=== PATIENT | male | born 1970 | race Caucasian/White ===

== ENCOUNTER 2020-08-18 20:35 | Observation (INO) ==
--- NOTE | 2020-08-18 21:20 | Emergency Department Note ---
History of Present Illness General Chief complaint: Hypertension Stated complaint: HIGH BLOOD PRESSURE Time Seen by Provider: 08/18/20 21:06 History of Present Illness Maximum Pain Intensity: 3 This is a 49-year-old male that presents to the emergency department via private vehicle with complaints "high blood pressure". The patient notes that he has not seen a PCP since 1994. Yesterday he presented to an urgent care for evaluation of some swelling to his face and was noted to have elevated blood pressure therefore sent here for evaluation. Patient underwent complete work-up in the ED yesterday and notes that he was discharged home with amlodipine. He took the first dose earlier today around 10:30 AM. This was a 5 mg dose. Patient states that he then checked his blood pressure at home and it was 222/116. This was around 7 PM and around that same time he developed chest pain on the left side described as a pressure that lasted about 30 minutes. This is the first time he has experienced chest pressure with this. The patient denies any headache. He denies any other pertinent past medical history, surgeries or allergies that he is aware of. Home Medications Medication Instructions Recorded Confirmed Type acetaminophen [Tylenol] 650 mg PO QID PRN 08/17/20 08/18/20 History amlodipine [Norvasc] 5 mg PO DAILY #20 tab 08/17/20 08/18/20 Rx Allergies Allergy/AdvReac Type Severity Reaction Status Date / Time No Known Allergies Allergy Unverified 08/17/20 10:57 Past Med/Surg History Medical History (Updated 08/19/20 @ 01:11 by Willy Rolle PA-C) Borderline diabetes Surgical History No pertinent past surgical history Social History Smoking Status: Never smoker Preferred Language: Maltese Feels Safe at Home: Yes Review of Systems A total of 10 systems reviewed and were otherwise negative Physical Exam Vital Signs Vital Signs - 24 hr 08/18/20 20:36 08/18/20 21:00 08/18/20 21:09 Temperature 36.5 C Temperature Source Temporal Artery Scan Pulse Rate 106 H 84 88 Pulse Rate [Bilateral Apical] Pulse Rate from SpO2 Sensor 84 88 Respiratory Rate 18 25 H 18 Respiratory Effort / Characteristics Respiratory Depth Blood Pressure 235/138 H 194/103 H Blood Pressure [Left Arm] Blood Pressure Mean 170 133 Blood Pressure Mean [Left Arm] Pulse Oximetry 97 96 97 Oxygen Delivery Method Room Air Sepsis Recent Fever Within 48 Hours No Sepsis New/Unexplained Change in Mental Status N/A Sepsis Action Taken by Nursing No Action Required 08/18/20 21:30 08/18/20 21:31 08/18/20 22:00 Temperature Temperature Source Pulse Rate 87 75 Pulse Rate [Bilateral Apical] Pulse Rate from SpO2 Sensor 92 H 87 76 Respiratory Rate Respiratory Effort / Characteristics Respiratory Depth Blood Pressure 212/114 H 189/110 H Blood Pressure [Left Arm] Blood Pressure Mean 146 136 Blood Pressure Mean [Left Arm] Pulse Oximetry 97 97 97 Oxygen Delivery Method Sepsis Recent Fever Within 48 Hours Sepsis New/Unexplained Change in Mental Status Sepsis Action Taken by Nursing 08/18/20 22:01 08/18/20 22:30 08/18/20 22:31 Temperature Temperature Source Pulse Rate 75 75 82 Pulse Rate [Bilateral Apical] Pulse Rate from SpO2 Sensor 75 76 82 Respiratory Rate Respiratory Effort / Characteristics Respiratory Depth Blood Pressure 197/107 H Blood Pressure [Left Arm] Blood Pressure Mean 137 Blood Pressure Mean [Left Arm] Pulse Oximetry 95 97 96 Oxygen Delivery Method Sepsis Recent Fever Within 48 Hours Sepsis New/Unexplained Change in Mental Status Sepsis Action Taken by Nursing 08/18/20 23:11 08/18/20 23:52 08/19/20 00:41 Temperature Temperature Source Pulse Rate Pulse Rate [Bilateral Apical] 76 70 78 Pulse Rate from SpO2 Sensor Respiratory Rate 20 20 20 Respiratory Effort / Characteristics Non-Labored Respiratory Depth Normal Blood Pressure Blood Pressure [Left Arm] 197/108 H 195/108 H 180/99 H Blood Pressure Mean Blood Pressure Mean [Left Arm] 137 137 126 Pulse Oximetry 99 96 98 Oxygen Delivery Method Room Air Room Air Room Air Sepsis Recent Fever Within 48 Hours Sepsis New/Unexplained Change in Mental Status Sepsis Action Taken by Nursing VITAL SIGNS - Vital signs and nursing notes were reviewed. Hypertensive, otherwise stable and afebrile. GENERAL -4-year-old male appearing his stated age who is in no acute distress. Communicates well with provider and answers questions appropriately. SKIN - Without rashes. No meningeal or petechial rash. HEAD - NC/AT. EYES - PERRL with EOMI bilaterally. Sclera anicteric. EARS - No deformities of external structures noted on gross examination bilaterally. NOSE - Midline and without cyanosis. No epistaxis or purulent drainage noted. MOUTH/OROPHARYNX - Without perioral cyanosis. NECK - Neck with FROM. No nuchal rigidity. LUNGS - Chest wall symmetric without accessory muscle use, intercostals retractions, or central cyanosis. Normal vesicular breath sounds CTA B/L. No wheezes, rales, or rhonchi appreciated. CARDIAC - RRR with S1/S2. No murmur, rubs, or gallops appreciated. ABDOMEN - Abdominal contour normal without pulsations or visible masses. BS normoactive all four quadrants. No tenderness, palpable masses, hepatosplenomegaly, or ascites noted. EXTREMITIES - No clubbing or peripheral cyanosis. NEUROLOGIC - Cranial nerves II through XII grossly intact. PSYCH - A&Ox3 and cooperates fully with examiner. Pt is very pleasant and interacts well with examiner. Medical Decision Making Laboratory Data Result diagrams: 08/18/20 21:38 08/18/20 21:38 Lab Results 08/18/20 08/18/20 08/18/20 Range/Units 21:38 21:38 23:20 WBC 8.98 (4.8-10.8) K/uL RBC 5.12 (4.7-6.1) M/uL Hgb 15.0 (14.0-18.0) g/dL Hct 45.0 (42-52) % MCV 87.9 (80-100) fL MCH 29.3 (25-34) pg MCHC 33.3 (32-36) g/dL RDW Std Deviation 44.2 (36.4-46.3) fL RDW Coeff of Aman 13.7 (11.5-14.5) % Plt Count 208 (130-400) K/uL MPV 11.8 H (7.4-10.4) fL Immature Gran % (Auto) 0.1 % Neut % (Auto) 63.0 % Lymph % (Auto) 23.6 % [place] % (Auto) 9.4 % Eos % (Auto) 3.6 % Baso % (Auto) 0.3 % Neut # (Auto) 5.66 (1.4-6.5) K/uL Lymph # (Auto) 2.12 (1.2-3.4) K/uL [place] # (Auto) 0.84 H (0.11-0.59) K/uL Eos # (Auto) 0.32 (0-0.5) K/uL Baso # (Auto) 0.03 (0-0.2) K/uL Immature Gran # (Auto) 0.01 (0.00-0.02) K/uL Sodium 142 (136-145) mmol/L Potassium 3.5 (3.5-5.1) mmol/L Chloride 108 H (98-107) mmol/L Carbon Dioxide 25 (21-32) mmol/L Anion Gap 9.0 (3-11) BUN 17 (7-18) mg/dl Creatinine 1.12 (0.6-1.4) mg/dl Est Cr Clr Drug Dosing 99.4 ml/min Est GFR ( Amer) 88.3 ml/min Est GFR (Non-Af Amer) 76.2 ml/min BUN/Creatinine Ratio 14.8 (10-20) Glucose 110 H (70-99) mg/dl Calcium 9.3 (8.5-10.1) mg/dl Total Bilirubin 0.3 (0.2-1) mg/dl AST 18 (15-37) U/L ALT 24 (12-78) U/L Alkaline Phosphatase 121 H (45-117) U/L Troponin I 0.035 0.037 (0-0.045) ng/ml NT-Pro-B Natriuret Pep 458 (0-900) pg/ml Total Protein 7.5 (6.4-8.2) gm/dl Albumin 3.6 (3.4-5.0) gm/dl Globulin 3.9 (2.5-4.0) gm/dl Albumin/Globulin Ratio 0.9 (0.9-2) Urine Color Urine Appearance (Clear) Urine pH (4.5-7.5) Ur Specific [place] (1.000-1.030) Urine Protein (Negative) Urine Glucose (UA) (Negative) Urine Ketones (Negative) Urine Blood (Negative) Urine Nitrite (Negative) Urine Bilirubin (Negative) Urine Urobilinogen (Negative) Ur Leukocyte Esterase (Negative) COVID-19 Eval Order 08/18/20 08/19/20 Range/Units 23:45 00:20 WBC (4.8-10.8) K/uL RBC (4.7-6.1) M/uL Hgb (14.0-18.0) g/dL Hct (42-52) % MCV (80-100) fL MCH (25-34) pg MCHC (32-36) g/dL RDW Std Deviation (36.4-46.3) fL RDW Coeff of Aman (11.5-14.5) % Plt Count (130-400) K/uL MPV (7.4-10.4) fL Immature Gran % (Auto) % Neut % (Auto) % Lymph % (Auto) % [place] % (Auto) % Eos % (Auto) % Baso % (Auto) % Neut # (Auto) (1.4-6.5) K/uL Lymph # (Auto) (1.2-3.4) K/uL [place] # (Auto) (0.11-0.59) K/uL Eos # (Auto) (0-0.5) K/uL Baso # (Auto) (0-0.2) K/uL Immature Gran # (Auto) (0.00-0.02) K/uL Sodium (136-145) mmol/L Potassium (3.5-5.1) mmol/L Chloride (98-107) mmol/L Carbon Dioxide (21-32) mmol/L Anion Gap (3-11) BUN (7-18) mg/dl Creatinine (0.6-1.4) mg/dl Est Cr Clr Drug Dosing ml/min Est GFR ( Amer) ml/min Est GFR (Non-Af Amer) ml/min BUN/Creatinine Ratio (10-20) Glucose (70-99) mg/dl Calcium (8.5-10.1) mg/dl Total Bilirubin (0.2-1) mg/dl AST (15-37) U/L ALT (12-78) U/L Alkaline Phosphatase (45-117) U/L Troponin I (0-0.045) ng/ml NT-Pro-B Natriuret Pep (0-900) pg/ml Total Protein (6.4-8.2) gm/dl Albumin (3.4-5.0) gm/dl Globulin (2.5-4.0) gm/dl Albumin/Globulin Ratio (0.9-2) Urine Color Yellow Urine Appearance Clear (Clear) Urine pH 7.0 (4.5-7.5) Ur Specific [place] 1.019 (1.000-1.030) Urine Protein Negative (Negative) Urine Glucose (UA) Negative (Negative) Urine Ketones Negative (Negative) Urine Blood Negative (Negative) Urine Nitrite Negative (Negative) Urine Bilirubin Negative (Negative) Urine Urobilinogen Negative (Negative) Ur Leukocyte Esterase Negative (Negative) COVID-19 Eval Order Covid19 at [facility] Imaging Data My Impression: Per my interpretation, chest x-ray compared to previous reveals no significant change or acute process. MDM Narrative Patient was seen and evaluated as above in room A12. Review was performed of nursing notes and vital signs. I did review pertinent previous visits and patient history. After obtaining a thorough history and physical examination the above work up was performed. Patient presents to us today following an elevated blood pressure reading at home. Patient has not seen a PCP since 1994. He then presented to [facility]/urgent care yesterday for evaluation of some facial swelling and was found to be significantly hypertensive and sent here for eval. Patient had a complete work-up performed and was started on amlodipine. He then notes that today he checked his blood pressure around 7 PM and it was elevated at 222/116. He was concerned therefore prompted arrival. Around that same time he developed left-sided chest pressure that lasted about 30 minutes. I will note that without intervention here the patient's systolic blood pressure did drop about 17%. Labs reveal no leukocytosis or concerning anemia. No emergent metabolic disturbance. Troponin although detectable is within normal range x2. Urinalysis does not just infection. Chest x-ray reveals no acute process compared to previous. Given the patient's left-sided chest discomfort that occurred earlier today which is new in the setting of significant hypertension do believe that further evaluation and management inpatient setting is warranted. Case discussed with the hospitalist. Please refer to further documentation regarding his stay. At the time of discussion with the hospitalist we agreed upon adding IV labetalol x1 however upon reassessment the patient's systolic had been dropped to 180 and therefore held. EKG reveals normal sinus rhythm at a rate of [address] elevation. This was with a QTC of 456 and a QRS at 98. This was compared EKG performed yesterday and no significant change was found. An order was placed for continuous cardiac monitoring. The monitor shows a rate of 78 with sinus rhythm. GCS: 15 In the evaluation and treatment of this patient the following differential diagnoses were entertained: RI, PE, CVA, TIA, hypertensive urgency, hypertensive emergency, among others. Impression & Plan Pressure in left side of chest, Hypertensive urgency Discharge Plan Visit Data Chief Complaint: Hypertension Stated Complaint: HIGH BLOOD PRESSURE ED Provider: Delroy Najera ED Midlevel Provider: Willy Rolle Discharge Problem: Pressure in left side of chest, Hypertensive urgency Patient Disposition: Admitted As Inpatient Condition: Good Forms Stand Alone Forms: [facility] Prescriptions Prescriptions: No Action acetaminophen [Tylenol] 325 mg Tablet 650 mg PO QID PRN (Reason: Pain) RF: 0 amlodipine [Norvasc] 5 mg tablet 5 mg PO DAILY Qty: 20 RF: 0 Referrals Referrals: PCP,NO [Primary Care Provider] -
[2020-08-18 21:50] LABS: Basophils # (auto) 0.03 K/uL (0-0.2); Basophils % (auto) 0.3 %; Eosinophils # (auto) 0.32 K/uL (0-0.5); Eosinophils % (auto) 3.6 %; Immature Granulocytes # (auto) 0.01 K/uL (0.00-0.02); Immature Granulocytes % (auto) 0.1 %; Lymphocytes # (auto) 2.12 K/uL (1.2-3.4); Lymphocytes % (auto) 23.6 %; Mean Corpuscular Hemoglobin 29.3 pg (25-34); Mean Corpuscular Hgb Conc 33.3 g/dL (32-36); Mean Corpuscular Volume 87.9 fL (80-100); Mean Platelet Volume 11.8 fL (7.4-10.4); Monocytes # (auto) 0.84 K/uL (0.11-0.59); Monocytes % (auto) 9.4 %; Neutrophils # (auto) 5.66 K/uL (1.4-6.5); Platelet Count 208 K/uL (130-400); RDW Coefficient of Variation 13.7 % (11.5-14.5); RDW Standard Deviation 44.2 fL (36.4-46.3); Red Blood Count 5.12 M/uL (4.7-6.1); White Blood Count 8.98 K/uL (4.8-10.8)
[2020-08-18 22:07] LABS: Albumin Level 3.6 gm/dl (3.4-5.0); BUN Creatinine Ratio 14.8 (10-20); Calcium 9.3 mg/dl (8.5-10.1); Creatinine Clr Calc Pharmacy 99.4 ml/min; Est GFR (African American) 88.3 ml/min; Est GFR (Non-African American) 76.2 ml/min; Potassium 3.5 mmol/L (3.5-5.1)
[2020-08-18 22:12] LABS: Albumin Globulin Ratio 0.9 (0.9-2); Bilirubin,Total 0.3 mg/dl (0.2-1); Globulin 3.9 gm/dl (2.5-4.0); Total Protein 7.5 gm/dl (6.4-8.2); Troponin I 0.035 ng/ml (0-0.045)
[2020-08-18 23:56] LABS: Appearance Urine Clear (Clear); Bilirubin Urine Negative (Negative); Blood Urine Negative (Negative); Color Urine Yellow; Glucose Urine UA Negative (Negative); Ketones Urine Negative (Negative); Leukocyte Esterase Urine Negative (Negative); Nitrite Urine Negative (Negative); Protein Urine Negative (Negative); Specific Gravity Urine 1.019 (1.000-1.030); Urobilinogen Urine Negative (Negative)
[2020-08-19] MEDS ORDERED: LABETALOL HCL IV 5 MG/ML 20ML IV STA (00:35)
--- NOTE | 2020-08-19 01:02 | History & Physical Report ---
Date of Service August 19, 2020 Assessment & Plan (1) Hypertensive urgency: Juan Iverson is a 49-year-old male with no significant past medical history as he did not seek medical care for much of the last several years; who presents from the emergency department as concern for hypertensive urgency. Hypertensive urgency: -Extreme elevation of blood pressure upon presentation in ER without signs of damage -CXR from 08/17 and 08/18 demonstrating mild cardiomegaly without signs of acute process -EKG from 08/17 demonstrating signs of left ventricular hypertrophy -Serial troponins over the last 2 days negative -BNP 458 on admission -Will try to gradually lower blood pressure with overnight goals being SBP to not fall below 180 -Discontinue amlodipine 5 mg -Start lisinopril 10 mg with hydrochlorothiazide 12.5 mg daily given degree of blood pressure elevation -Continue to monitor for signs of endorgan dysfunction/damage -Labetalol 5 mg q4h, hydralazine 5 mg q4h PRN SBP>200 overnight Diabetes: -Elevated glucose on admission -Given lack of medical care over the last several years will order A1c for screening -Additionally will order lipid profile Diet: Carb consistent CODE STATUS: Full code DVT prophylaxis: Deferred at this time given hypertensive urgency (2) Borderline diabetes: History of Present Illness Primary Care Provider: NO PCP Juan Iverson is a 49-year-old male with no significant past medical history as he did not seek medical care for much of the last several years; who presents from the emergency department as concern for hypertensive urgency. Of note patient has presented twice over the last 2 days to the ER for hypertensive urgency. Upon presentation to the ER initially have a blood pressure of 235/138; however remained relatively asymptomatic at that time. Did endorse Wednesday that he was having some facial swelling and at that time he had some feelings of chest discomfort however is not continuing to or had return of that pain since that time. Has not seek medical care previously as he did not have feeling of need to, and therefore has no knowledge of any medical problems that he may have had in the past. Does have a family history of hypertension, as well as congestive heart failure in his mother. Denies smoking, denies alcohol use, denies recreational drug use (inclusive of marijuana, cocaine, methamphetamines, heroin). Currently denies all symptoms. Specifically denies chest pain, shortness of breath, chest pressure, nausea, vomiting, abdominal pain, headaches, changes in vision, lightheadedness, dizziness, weakness, and numbness/tingling. Allergies Allergy/AdvReac Type Severity Reaction Status Date / Time No Known Allergies Allergy Unverified 08/17/20 10:57 Home Medications Medication Instructions Recorded Confirmed Type acetaminophen [Tylenol] 650 mg PO QID PRN 08/17/20 08/18/20 History amlodipine [Norvasc] 5 mg PO DAILY #20 tab 08/17/20 08/18/20 Rx Past Med/Surg History Medical History (Updated 08/19/20 @ 01:11 by Willy Rolle PA-C) Borderline diabetes Surgical History No pertinent past surgical history Social History Smoking Status: Never smoker Second Hand Exposure: No; Do You Dip or Chew Tobacco: No; Hx Alcohol Use: No Hx Substance Use: No Preferred Language: Algerian Communication Ability: Effective Steward/Stewardess Tourist Class Required: No Beliefs That Will Affect Care: Advent Current Living Situation: Parent Current Living Situation Comment: lives with mother Other Information That Helps Us Care for You: No Feels Safe at Home: Yes Safety Concerns: Feels Safe At This Time Assistive Devices: Glasses Assistive Devices Comment: Reading glasses Review of Systems Review of Systems: All systems reviewed & are unremarkable except as noted in HPI & below Physical Exam Constitutional: WD/WN, vitals as above Eyes: PERRL, conjunctivae normal, anicteric sclerae Respiratory: normal respiratory effort, lungs clear to auscultation Auscultation: no crackles, no rales, no rhonchi and no wheezes Cardiovascular: Rate/Rhythm: regular rate and regular rhythm Heart Sounds: no gallop, no murmur and no cardiac rub Vessels: normal peripheral pulses; no JVD Extremities: no edema Gastrointestinal (Abdomen): Inspection/Auscultation: normal bowel sounds; abdomen not distended Percussion/Palpation: abdomen soft; abdomen nontender and no guarding Musculoskeletal: no cyanosis or clubbing, extremities motor strength 5/5 Skin: no rashes, warm and dry Neurologic: PERRL, EOMI, accommodation nl, no face palsy, no dysarthria CN's II-XI intact bilaterally and moves all extremities Psychiatric: Orientation: alert and oriented x 3 Results & Data Results & Data ([facility]) Vital Signs (Past 12 Hours) Vital Signs Temp Pulse Pulse Resp BP BP Pulse Ox 08/19/20 00:41 78 20 180/99 H 98 08/18/20 23:52 70 20 195/108 H 96 08/18/20 23:11 76 20 197/108 H 99 08/18/20 22:31 82 96 08/18/20 22:30 75 197/107 H 97 08/18/20 22:01 75 95 08/18/20 22:00 75 189/110 H 97 08/18/20 21:31 87 97 08/18/20 21:30 212/114 H 97 08/18/20 21:09 88 18 97 08/18/20 21:00 84 25 H 194/103 H 96 08/18/20 20:36 36.5 C 106 H 18 235/138 H 97 Laboratory Results 08/19/20 08/19/20 08/18/20 Range/Units 00:20 00:20 23:45 WBC (4.8-10.8) K/uL RBC (4.7-6.1) M/uL Hgb (14.0-18.0) g/dL Hct (42-52) % MCV (80-100) fL MCH (25-34) pg MCHC (32-36) g/dL RDW Std Deviation (36.4-46.3) fL RDW Coeff of Aman (11.5-14.5) % Plt Count (130-400) K/uL MPV (7.4-10.4) fL Immature Gran % (Auto) % Neut % (Auto) % Lymph % (Auto) % [place] % (Auto) % Eos % (Auto) % Baso % (Auto) % Neut # (Auto) (1.4-6.5) K/uL Lymph # (Auto) (1.2-3.4) K/uL [place] # (Auto) (0.11-0.59) K/uL Eos # (Auto) (0-0.5) K/uL Baso # (Auto) (0-0.2) K/uL Immature Gran # (Auto) (0.00-0.02) K/uL Sodium (136-145) mmol/L Potassium (3.5-5.1) mmol/L Chloride (98-107) mmol/L Carbon Dioxide (21-32) mmol/L Anion Gap (3-11) BUN (7-18) mg/dl Creatinine (0.6-1.4) mg/dl Est Cr Clr Drug Dosing ml/min Est GFR ( Amer) ml/min Est GFR (Non-Af Amer) ml/min BUN/Creatinine Ratio (10-20) Glucose (70-99) mg/dl Calcium (8.5-10.1) mg/dl Total Bilirubin (0.2-1) mg/dl AST (15-37) U/L ALT (12-78) U/L Alkaline Phosphatase (45-117) U/L Troponin I (0-0.045) ng/ml NT-Pro-B Natriuret Pep (0-900) pg/ml Total Protein (6.4-8.2) gm/dl Albumin (3.4-5.0) gm/dl Globulin (2.5-4.0) gm/dl Albumin/Globulin Ratio (0.9-2) Urine Color Yellow Urine Appearance Clear (Clear) Urine pH 7.0 (4.5-7.5) Ur Specific [place] 1.019 (1.000-1.030) Urine Protein Negative (Negative) Urine Glucose (UA) Negative (Negative) Urine Ketones Negative (Negative) Urine Blood Negative (Negative) Urine Nitrite Negative (Negative) Urine Bilirubin Negative (Negative) Urine Urobilinogen Negative (Negative) Ur Leukocyte Esterase Negative (Negative) COVID-19 Eval Order Covid19 at [facility] SARS-CoV-2 (PCR) NEGATIVE (Negative) 08/18/20 08/18/20 08/18/20 Range/Units 23:20 21:38 21:38 WBC 8.98 (4.8-10.8) K/uL RBC 5.12 (4.7-6.1) M/uL Hgb 15.0 (14.0-18.0) g/dL Hct 45.0 (42-52) % MCV 87.9 (80-100) fL MCH 29.3 (25-34) pg MCHC 33.3 (32-36) g/dL RDW Std Deviation 44.2 (36.4-46.3) fL RDW Coeff of Aman 13.7 (11.5-14.5) % Plt Count 208 (130-400) K/uL MPV 11.8 H (7.4-10.4) fL Immature Gran % (Auto) 0.1 % Neut % (Auto) 63.0 % Lymph % (Auto) 23.6 % [place] % (Auto) 9.4 % Eos % (Auto) 3.6 % Baso % (Auto) 0.3 % Neut # (Auto) 5.66 (1.4-6.5) K/uL Lymph # (Auto) 2.12 (1.2-3.4) K/uL [place] # (Auto) 0.84 H (0.11-0.59) K/uL Eos # (Auto) 0.32 (0-0.5) K/uL Baso # (Auto) 0.03 (0-0.2) K/uL Immature Gran # (Auto) 0.01 (0.00-0.02) K/uL Sodium 142 (136-145) mmol/L Potassium 3.5 (3.5-5.1) mmol/L Chloride 108 H (98-107) mmol/L Carbon Dioxide 25 (21-32) mmol/L Anion Gap 9.0 (3-11) BUN 17 (7-18) mg/dl Creatinine 1.12 (0.6-1.4) mg/dl Est Cr Clr Drug Dosing 99.4 ml/min Est GFR ( Amer) 88.3 ml/min Est GFR (Non-Af Amer) 76.2 ml/min BUN/Creatinine Ratio 14.8 (10-20) Glucose 110 H (70-99) mg/dl Calcium 9.3 (8.5-10.1) mg/dl Total Bilirubin 0.3 (0.2-1) mg/dl AST 18 (15-37) U/L ALT 24 (12-78) U/L Alkaline Phosphatase 121 H (45-117) U/L Troponin I 0.037 0.035 (0-0.045) ng/ml NT-Pro-B Natriuret Pep 458 (0-900) pg/ml Total Protein 7.5 (6.4-8.2) gm/dl Albumin 3.6 (3.4-5.0) gm/dl Globulin 3.9 (2.5-4.0) gm/dl Albumin/Globulin Ratio 0.9 (0.9-2) Urine Color Urine Appearance (Clear) Urine pH (4.5-7.5) Ur Specific [place] (1.000-1.030) Urine Protein (Negative) Urine Glucose (UA) (Negative) Urine Ketones (Negative) Urine Blood (Negative) Urine Nitrite (Negative) Urine Bilirubin (Negative) Urine Urobilinogen (Negative) Ur Leukocyte Esterase (Negative) COVID-19 Eval Order SARS-CoV-2 (PCR) (Negative) Medications Administered Current Inpatient Medications Acetaminophen (Acetaminophen 325 Mg Tab) 650 mg PO Q4H PRN PRN Reason: pain/fever Stop: 09/18/20 03:11 Al Hydrox/Mg Hydrox/Simethicone (Aluminum/Magnesium Susp 30 Ml Udc) 30 ml PO Q6H PRN PRN Reason: Dyspepsia Stop: 09/18/20 03:11 Lisinopril/HCTZ (Lisinopril/Hctz 10/12.5mg Tab) 1 tab PO QAM ANTONINO Stop: 09/18/20 08:59 Hydralazine HCl (Hydralazine Hcl 20 Mg/Ml Vial) 5 mg IV Q4H PRN PRN Reason: SBP>200 Stop: 09/18/20 03:11 Labetalol HCl (Labetalol Hcl Iv 5 Mg/Ml 20ml) 5 mg IV Q4H PRN PRN Reason: SBP>200 Stop: 09/18/20 03:11 Magnesium Hydroxide (Magnesium Hydroxide Susp 30 Ml Udc) 30 ml PO Q6H PRN PRN Reason: Constipation Stop: 09/18/20 03:11 Morphine Sulfate (Morphine Sulfate 2 Mg/Ml Carp) 2 mg IV Q30M PRN PRN Reason: Chest Pain Stop: 09/02/20 03:11 Nitroglycerin (Nitroglycerin Sl 0.4 Mg/Tab Tab) 0.4 mg SL UD PRN PRN Reason: Chest Pain Stop: 09/18/20 03:11 Ondansetron HCl (Ondansetron Inj 2 Mg/Ml 2 Ml Vial) 4 mg IV Q6H PRN PRN Reason: Nausea Stop: 09/18/20 03:11 Polyethylene Glycol (Polyethylene (Miralax) 17 Gm Pack) 17 gm PO DAILY PRN PRN Reason: Constipation Stop: 09/18/20 03:11 Supervising Physician Co-Signing Physician Notes Patient seen and examined, chart reviewed, case discussed with Dr. Ruiz and I agree with his assessment and plan as documented above. Briefly, patient is a 49yo male presenting with hypertensive urgency. He did have some chest pain which was has resolved. No evidence of ischemia or end organ dysfunction. Patient has not seen a physician for many years. He does not take anti-hypertensives Exam is unremarkable aside for elevated blood pressure Heart - +S1/S2, regular, no m/r/g Lungs - CTA Labs and images reviewed Assessment/Plan - poorly controlled hypertension, resolved chest discomfort -Admit to medical -Gradual lowering of BP - will initiate two agents - Lisinopril and HCTZ -Continue to monitor BP -Remainder of plan as above -Patient will need to establish care with PCP Resident Activity Tracking Resident Involvement: Resident Care Provided Care Provided: Adult Hospital Medicine
[2020-08-19] MEDS ORDERED: POLYETHYLENE (MIRALAX) 17 GM PACK PO PRN (03:12)
[2020-08-19] MEDS ORDERED: ONDANSETRON INJ 2 MG/ML 2 ML VIAL IV PRN (03:12)
[2020-08-19] MEDS ORDERED: ACETAMINOPHEN 325 MG TAB PO PRN (03:12)
[2020-08-19] MEDS ORDERED: MoRPHine SULFATE 2 MG/ML CARP IV PRN (03:12)
[2020-08-19] MEDS ORDERED: ALUMINUM/MAGNESIUM SUSP 30 ML UDC PO PRN (03:12)
[2020-08-19] MEDS ORDERED: NITROGLYCERIN SL 0.4 MG/TAB TAB SL PRN (03:12)
[2020-08-19] MEDS ORDERED: MAGNESIUM HYDROXIDE SUSP 30 ML UDC PO PRN (03:12)
--- NOTE | 2020-08-19 07:49 | XRay Report ---
XR chest 1V portable HISTORY: Hypertension. Atypical chest pain. COMPARISON: Chest 08/17/2020. FINDINGS: The cardiac silhouette remains mildly enlarged. No pneumothorax. No pleural effusions. The lungs are clear. No new focal lung consolidations to suggest pneumonia. No evidence for pulmonary syed ma. IMPRESSION: Stable mild cardiomegaly. Otherwise, no acute process within the chest. ACT 112: Negative or not required by law. Electronically signed by: Isaac Love M.D. 08/19/2020 7:48 AM
[2020-08-19 08:37] LABS: Basophils # (auto) 0.04 K/uL (0-0.2); Basophils % (auto) 0.4 %; Eosinophils # (auto) 0.28 K/uL (0-0.5); Hematocrit (blood only) 44.5 % (42-52); Hemoglobin 14.8 g/dL (14.0-18.0); Immature Granulocytes # (auto) 0.02 K/uL (0.00-0.02); Immature Granulocytes % (auto) 0.2 %; Lymphocytes # (auto) 1.84 K/uL (1.2-3.4); Lymphocytes % (auto) 19.9 %; Mean Corpuscular Hemoglobin 29.3 pg (25-34); Mean Corpuscular Hgb Conc 33.3 g/dL (32-36); Mean Corpuscular Volume 88.1 fL (80-100); Mean Platelet Volume 11.9 fL (7.4-10.4); Monocytes # (auto) 0.72 K/uL (0.11-0.59); Monocytes % (auto) 7.8 %; Neutrophils # (auto) 6.33 K/uL (1.4-6.5); Neutrophils % (auto) 68.7 %; Platelet Count 219 K/uL (130-400); RDW Coefficient of Variation 13.6 % (11.5-14.5); RDW Standard Deviation 44.1 fL (36.4-46.3); Red Blood Count 5.05 M/uL (4.7-6.1); White Blood Count 9.23 K/uL (4.8-10.8)
[2020-08-19] MEDS: LABETALOL HCL IV 5 MG/ML 20ML IV PRN ×2 (08:41→16:59)
[2020-08-19] MEDS: LISINOPRIL/HCTZ 10/12.5MG TAB PO SCH (08:41)
[2020-08-19] MEDS ORDERED: lisinopril 10 MG TAB PO SCH (09:00)
[2020-08-19 09:17] LABS: BUN Creatinine Ratio 12.3 (10-20); Calcium 8.2 mg/dl (8.5-10.1); Creatinine Clr Calc Pharmacy 108.8 ml/min; Est GFR (African American) 98.9 ml/min; Est GFR (Non-African American) 85.3 ml/min; Magnesium 2.2 mg/dl (1.8-2.4); Phosphorus 2.5 mg/dl (2.5-4.9); Potassium 3.7 mmol/L (3.5-5.1)
[2020-08-19 09:45] LABS: Estimated Average Glucose 120 mg/dl; Hemoglobin A1C 5.8 % (4.5-5.6)
[2020-08-19] MEDS: hydrALAZINE HCL 20 MG/ML VIAL IV PRN (12:40)
--- NOTE | 2020-08-19 13:58 | Hospitalist Progress Note ---
Date of Service August 19, 2020 Assessment & Plan (1) Hypertensive urgency: 49yo male without significant PMH (no medical care for 25 years) p/w severely elevated blood pressure and chest discomfort. Severe hypertension, chest pressure BP 235/118 on admission; patient reports feeling chest discomfort at home which resolved and has not recurred; no other signs or symptoms of end-organ damage CXR only notable for mild cardiomegaly, EKG with signs of LVH, serial t roponins negative BNP 458 on admission; patient notes chronic history of LE swelling Echo 08/19 shows EF 55-60%, moderate concentric LVH, no wall motion abnormalities Discontinued amlodipine (of which patient had only taken one dose) Continue lisinopril 10mg qd and HCTZ 12.5mg qd Labetalol 5mg IV q4h prn SBP>200 with hydralazine 5mg IV q4h prn if SBP remains over 200 Impaired fasting glucose A1c 5.8% indicating prediabetes/impaired fasting glucose Follow up lipid profile Follow up outpatient FEN: carb consistent diet Code status: full code DVT ppx: deferred given severe-range BP Isolation: none Held home meds: amlodipine Consults: none Dispo: med/surg Admission and Anticipated Discharge Date Admission Date: August 19, 2020 Supervising Physician Co-Signing Physician Notes I personally examined the patient and verified all boyd points of history and exam, discussed case, and agree with decision making with Dr Renner. Feeling okay now. No further chest pain. Is not certain if the chest pain was related to the blood pressure or the stress of everything that was going on. Either way it has resolved. Vitals noted, in general he is awake and alert pleasant no distress. HEENT normocephalic atraumatic mucous membranes moist. Breathing unlabored no accessory muscle use good effort. Skin shows no rashes no pallor or icterus. Markedly uncontrolled hypertension/probable hypertensive urgencyasymptomatic now, blood pressure is improving. Continue current medications and followas long as pressures stay stable or continue to show some degree of improvement, then probably home tomorrow with ongoing titration to normotensive ranges over the next 4 to 6 weeks. Echocardiogram noted and discussed with patient. Need for better control of blood pressure and highly likely lifestyle change also discussed with patient. Impaired glucose tolerancelifestyle change. Otherwise as above. Subjective Patient seen and evaluated at bedside this morning. No acute events overnight. Patient feels well today and has no complaints. Denies CP, SOB, headache, vision changes, confusion, abdominal pain, nausea, vomiting, or other symptoms. Review of Systems Review of Systems: See HPI Physical Exam Physical Exam: Constitutional: well-appearing, no acute distress CV: regular rhythm, grade 3/6 systolic murmur appreciated extremities well- perfused Resp: CTABL, no wheezes/rales/rhonchi appreciated, no increased work of breathing MSK: no gross deformities appreciated Skin: warm, dry, no rash appreciated Neuro: AOx4, no focal neurological deficits appreciated Psych: cooperative, pleasant, appropriate rate/volume/quantity of speech Results & Data Results & Data ([facility]) Vital Signs (Past 12 Hours) Vital Signs Temp Pulse Pulse Resp BP BP Pulse Ox 08/19/20 12:55 88 150/103 H 08/19/20 12:34 36.8 C 83 16 210/117 H 97 08/19/20 08:56 83 187/104 H 08/19/20 08:16 36.9 C 83 20 198/108 H 210/96 H 96 08/19/20 07:27 69 08/19/20 06:11 78 08/19/20 06:05 197/112 H 08/19/20 04:58 193/109 H 08/19/20 03:54 198/118 H 08/19/20 03:15 37.0 C 87 18 211/111 H 96 08/19/20 02:20 67 20 170/96 H 97 08/19/20 02:02 67 20 187/102 H 97 Resident Activity Tracking Resident Involvement: Resident Care Provided Care Provided: Adult [facility] Medicine
--- NOTE | 2020-08-19 14:11 | XCELERA ---
[id number]
--- NOTE | 2020-08-19 16:36 | Billing Data ---
Date of Service August 19, 2020 Coding Level of Care Code 48415 Subseq Obs Care Lvl 3
--- NOTE | 2020-08-19 19:28 | Billing Data ---
Date of Service August 19, 2020 Coding Level of Care Code 93004 OBS Care - Level 2
--- NOTE | 2020-08-19 22:05 | Electrocardiogram Report ---
Test Reason : Blood Pressure : / mmHG Vent. Rate : 080 BPM Atrial Rate : 080 BPM P-R Int : 182 ms QRS Dur : 098 ms QT Int : 396 ms P-R-T Axes : 044 -17 099 degrees QTc Int : 456 ms Normal sinus rhythm Voltage criteria for left ventricular hypertrophy Inferior infarct (cited on or before 18-AUG-2020) T wave abnormality, consider lateral ischemia Abnormal ECG When compared with ECG of 17-AUG-2020 10:46, No significant change was found Confirmed by Hakeem Alicia ([id number]) on 08/19/2020 10:05:07 PM Referred By: REFERRED SELF Confirmed By:Hakeem Alicia
[2020-08-20] MEDS: LISINOPRIL/HCTZ 10/12.5MG TAB PO SCH (07:57)
--- NOTE | 2020-08-20 08:48 | Hospitalist Progress Note ---
Date of Service August 20, 2020 Assessment & Plan (1) Hypertensive urgency: 49yo male without significant PMH (no medical care for 25 years) p/w severely elevated blood pressure and chest discomfort. BP remains elevated; currently escalating antihypertensive therapy. Severe hypertension, chest pressure BP 235/118 on admission; patient reports feeling chest discomfort at home which resolved and has not recurred; no other signs or symptoms of end-organ damage CXR only notable for mild cardiomegaly, EKG with signs of LVH, serial troponins negative BNP 458 on admission; patient notes chronic history of LE swelling Echo 08/19 shows EF 55-60%, moderate concentric LVH, no wall motion abnormalities Discontinued amlodipine (of which patient had only taken one dose) Increasing lisinopril/HCTZ from 10/12.5 to 20/ qd Continue labetalol 200mg PO bid Labetalol 5mg IV q4h prn SBP>200 with hydralazine 5mg IV q4h prn if SBP remains over 200 Impaired fasting glucose A1c 5.8% indicating prediabetes/impaired fasting glucose Follow up lipid profile Follow up outpatient FEN: carb consistent diet Code status: full code DVT ppx: deferred given severe-range BP Isolation: none Held home meds: amlodipine Consults: none Dispo: med/surg Admission and Anticipated Discharge Date Admission Date: August 19, 2020 Subjective Patient seen and evaluated at bedside this morning. No acute events overnight. Patient feels well today, same as yesterday. Patient reports a bit of frustration with his persistent high BP but wants to stay until we can get better control of it. Denies CP, SOB, headache, vision changes, confusion, abdominal pain, nausea, vomiting, or other symptoms. Review of Systems Review of Systems: See HPI Physical Exam Physical Exam: Constitutional: well-appearing, no acute distress CV: regular rhythm, grade 3/6 systolic murmur appreciated extremities well- perfused Resp: CTABL, no wheezes/rales/rhonchi appreciated, no increased work of breathing MSK: no gross deformities appreciated Skin: warm, dry, no rash appreciated Neuro: AOx4, no focal neurological deficits appreciated Psych: cooperative, pleasant, appropriate rate/volume/quantity of speech Results & Data Results & Data ([facility]) Vital Signs (Past 12 Hours) Vital Signs Temp Pulse Pulse Resp BP BP Pulse Ox 08/20/20 07:57 36.5 C 94 H 19 202/131 H 195/131 H 94 08/20/20 07:18 78 08/20/20 03:28 36.7 C 88 16 155/92 H 99 08/20/20 01:57 77 08/19/20 23:21 36.7 C 78 16 185/96 H 98 Resident Activity Tracking Resident Involvement: Resident Care Provided Care Provided: Adult [facility] Medicine
[2020-08-20] MEDS ORDERED: LISINOPRIL/HCTZ 10/12.5MG TAB PO ONE ×2 (08:53→09:00)
[2020-08-20 08:56] LABS: Chol HDL Ratio 7; Cholesterol 251 mg/dl (0-200); HDL Cholesterol 36 mg/dl; LDL Cholesterol Calculated 193 mg/dl; Triglycerides 112 mg/dl (0-150); VLDL Cholesterol 22 mg/dl
[2020-08-20] MEDS ORDERED: LABETALOL HCL 200 MG TAB PO SCH (09:00)
[2020-08-20] MEDS: hydrALAZINE HCL 20 MG/ML VIAL IV PRN (11:00)
--- NOTE | 2020-08-20 13:31 | Discharge Summary ---
Date of Service August 20, 2020 Admission HPI Per Admitting Provider Juan Iverson is a 49-year-old male with no significant past medical history as he did not seek medical care for much of the last several years; who presents from the emergency department as concern for hypertensive urgency. Of note patient has presented twice over the last 2 days to the ER for hypertensive urgency. Upon presentation to the ER initially have a blood pressure of 235/138; however remained relatively asymptomatic at that time. Did endorse Wednesday that he was having some facial swelling and at that time he had some feelings of chest discomfort however is not continuing to or had return of that pain since that time. Has not seek medical care previously as he did not have feeling of need to, and therefore has no knowledge of any medical problems that he may have had in the past. Does have a family history of hypertension, as well as congestive heart failure in his mother. Denies smoking, denies alcohol use, denies recreational drug use (inclusive of marijuana, cocaine, methamphetamines, heroin). Currently denies all symptoms. Specifically denies chest pain, shortness of breath, chest pressure, nausea, vomiting, abdominal pain, headaches, changes in vision, lightheadedness, dizziness, weakness, and numbness/tingling. Admission Exam Per Admitting Provider Constitutional: WD/WN, vitals as above Eyes: PERRL, conjunctivae normal, anicteric sclerae Respiratory: normal respiratory effort, lungs clear to auscultation Auscultation: no crackles, no rales, no rhonchi and no wheezes Cardiovascular: Rate/Rhythm: regular rate and regular rhythm Heart Sounds: no gallop, no murmur and no cardiac rub Vessels: normal peripheral pulses; no JVD Extremities: no edema Gastrointestinal (Abdomen): Inspection/Auscultation: normal bowel sounds; abdomen not distended Percussion/Palpation: abdomen soft; abdomen nontender and no guarding Musculoskeletal: no cyanosis or clubbing, extremities motor strength 5/5 Skin: no rashes, warm and dry Neurologic: PERRL, EOMI, accommodation nl, no face palsy, no dysarthria CN's II-XI intact bilaterally and moves all extremities Psychiatric: Orientation: alert and oriented x 3 Principal Diagnosis Hypertensive emergency Discharge Exam Constitutional: well-appearing, no acute distress CV: regular rhythm, grade 3/6 systolic murmur appreciated extremities well- perfused Resp: CTABL, no wheezes/rales/rhonchi appreciated, no increased work of breathing MSK: no gross deformities appreciated Skin: warm, dry, no rash appreciated Neuro: AOx4, no focal neurological deficits appreciated Discharge Data Allergies Allergy/AdvReac Type Severity Reaction Status Date / Time No Known Allergies Allergy Unverified 08/17/20 10:57 Consultations 08/19/20 00:19 ED Decision to Admit Stat Hospital Course (1) Hypertensive urgency: 49yo male without significant PMH (no medical care for 25 years) p/w severely elevated blood pressure and chest discomfort. BP remains elevated; currently escalating antihypertensive therapy. Severe hypertension, chest pressure On admission, patient was treated with IV antihypertensives, which led to a slight 10-15% reduction in BP. Oral antihypertensives were added with minimal effect. Patient did not experience a recurrence of chest discomfort or any other symptoms. Echocardiogram revealed an EF of 55-60% and moderate concentric LVH. By hospital day three, patient's BP remained elevated, but had been reduced enough for patient to be safely discharged home. Patient expressed intent to follow up closely. Patient was discharged on hospital day three with oral antihypertensives and close follow-up planned. Impaired fasting glucose Patient's A1c on admission was 5.8%. Close outpatient follow-up was recommended. Total Time Total Time Spent Total Time Spent (In Minutes): <30 Discharge Plan Discharge Items Patient Disposition: Home - Self-Care Reason For Visit: HTN URGENCY Discharge Diagnosis: Severe-range HTN Condition on Discharge: Good Activity: Resume your previous activity Non-emergency contact: Primary Care Provider Call non-emergency contact if: your symptoms worsen Follow-up/Referrals: PCP,NO [Primary Care Provider] - Diet: Regular Addtl Attending Provider Instructions: You were admitted to the hospital for elevated blood pressure. You were treated with a combination of medicines, and made good progress. We can continue working on getting your blood pressure to a healthy range on an outpatient basis in clinic. A discharge summary will be sent to your primary care physician to ensure continuity of care. Please bring this discharge summary with you to your next office appointment so that your provider can review it at that time. Follow-up appointments: Make a follow-up appointment with Dr. Alex Renner within the next two weeks. It is very important that you follow up after discharge from the hospital. The clinic is right next to the hospital, at [address] in [place]. The clinic number is [phone]. You can set up an appointment with them by phone, and Dr. Renner will be able to pharmacy picking technician where we've left off here in the hospital. Medications: Your medication list has been reviewed and reconciled upon discharge to ensure accuracy and continuity of care. An updated list of all your medications is included with your hospital discharge paperwork. Please review this list closely, and make note of any changes. * We sent a new medication called lisinopril-hydrochlorothiazide (lisinopril- HCTZ) to your pharmacy. Take lisinopril-HCTZ (20mg/25mg) one tablet daily. * We sent a new medication called labetalol to your pharmacy. Take labetalol (200mg) one tablet twice daily. Take your medications as instructed; do not skip a dose of your medicines. Make sure all of your doctors know every medicine you are taking (including hzla-stg-swqwrkz medicines, vitamins, and supplements). Call your primary care provider before taking any new medicines (including fwru-ryd-tqebfsf medicines, vitamins, and supplements), because some of these may interact with your current medications, or may make your symptoms worse. Tell your primary care provider if you cannot afford your medications. CONTACT YOUR PRIMARY CARE PROVIDER if you experience any of the following: Chest discomfort Exercise intolerance Weakness Difficulty following your treatment plan, or difficulty taking medications CALL 911 OR GO TO THE EMERGENCY DEPARTMENT if you experience any of the following: Sudden, severe abdominal pain or nausea/vomiting Severe chest pain, or chest pain that radiates (moves) to your jaw or arm Sudden, severe shortness of breath or difficulty breathing Sudden changes in vision Thank you for allowing us to participate in your care. Pending Studies at Discharge: No Stand-Alone Forms: [facility] Medications and DC Order Prescriptions: New labetalol 200 mg Tablet 200 mg PO BID 30 Days Qty: 30 RF: 0 lisinopril-hydrochlorothiazide 20-25 mg tablet 1 tab PO DAILY Qty: 30 RF: 2 Continued acetaminophen [Tylenol] 325 mg Tablet 650 mg PO QID PRN (Reason: Pain) RF: 0 Discontinued amlodipine [Norvasc] 5 mg tablet 5 mg PO DAILY Qty: 20 RF: 0 Discharge Orders: Discharge Order (Routine); Ordered 08/20/20 Ordered By: Alex Renner Admission Data Admit Date/Time: 08/19/20 01:31 Attending Provider: Sal Valencia Admit Provider: Abner Ruiz Primary Care Provider: PCP,NO Other Providers: Ashely Hanson Other Interventions: Discharge Summary Assessment (RN) Last Done: 08/20/20 14:54 Supervising Physician Co-Signing Physician Notes I personally examined the patient and verified all boyd points of history and exam, discussed case, and agree with decision making with Dr Renner. Feels okay. No symptoms. Really wants to go home. Extensive discussion on medications, as well as lifestyle. 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 He eats fairly poorlyand drinks often times up to 6 Pepsi's a day. He is very interested in making lifestyle changes. Vitals noted, in general he is awake and alert pleasant no distress. HEENT normocephalic atraumatic mucous membranes moist. Breathing unlabored no accessory muscle use good effort. Skin shows no rashes no pallor or icterus. Markedly uncontrolled hypertension/probable hypertensive urgencyasymptomatic now, blood pressure is still a bit erratic but overall showing better control. He is utterly asymptomatic now and very much wants to go homegiven his fairly benign work-up this seems reasonable. He will have close outpatient follow-up, BMP next week, home on lisinopril, hydrochlorothiazide, and labetaloldiscussed medications in depth. Discussed lifestylegoal of Mediterranean diet and 30 minutes a day of cardiovascular exercisewe discussed with his job how he could potentially try to triage work related tasks to getting exercise at work, versus simply some form of light cardiovascular exercise after work. Resident Activity Tracking Resident Involvement: Resident Care Provided Care Provided: Adult Hospital Medicine
--- NOTE | 2020-08-20 18:41 | Billing Data ---
Date of Service August 20, 2020 Coding Level of Care Code 58383 OBS Care - Discharge
[2020-08-21] MEDS ORDERED: LISINOPRIL/HCTZ 10/12.5MG TAB PO SCH (09:00)
== END 2020-08-20 17:57 | disposition home or self-care (01) ==
LOC: ED 20:35 → 2W 20:35 → SUATTDRO 08-19 01:31 → 2W 08-19 02:10